=== PATIENT | male | born 1950 | race Caucasian/White ===

== ENCOUNTER 2018-03-27 13:58 | Emergency (ER) | payer MEDICARE ==
[~2018-03-27] VITALS: Ht 172.7 cm; Wt 80.0 kg
[2018-03-27 16:10] VITALS: BP 124/69
== END 2018-03-27 17:18 | disposition home or self-care (01) ==
LOC: EMS 13:59
DX: S83.92XA Sprain of unspecified site of left knee, initial encounter (principal); X58.XXXA Exposure to other specified factors, initial encounter; Y93.89 Activity, other specified; Y92.89 Other specified places as the place of occurrence of the external cause; Y99.8 Other external cause status
CPT/HCPCS: 99284